=== PATIENT | female | born 1980 | race Caucasian/White ===

== ENCOUNTER 2019-12-02 05:56 | Inpatient (IN) | payer MEDICAID ==
[~2019-12-02] VITALS: Ht 162.6 cm; Wt 82.2 kg
[2019-12-02 06:46] LABS: Basophils # (auto) 0.1 10 ^3/uL (0-0.2); Basophils % (auto) 0.5 % (0.0-2.0); Eosinophils # (auto) 0.3 10 ^3/uL (0-0.8); Eosinophils % (auto) 2.1 % (0.0-7.0); Hematocrit 41.7 % (36.0-46.0); Hemoglobin 14.2 g/dL (12.2-16.2); Lymphocytes # (auto) 1.9 10 ^3/uL (0.4-5.4); Lymphocytes % (auto) 12.4 % (10.0-50.0); Mean Corpuscular Hemoglobin 32.3 pg (28.0-32.0); Mean Corpuscular Hgb Conc. 34.1 g/dL (32.0-36.0); Mean Corpuscular Volume 94.6 fL (80.0-100.0); Monocytes # (auto) 0.8 10 ^3/uL (0-1.3); Monocytes % (auto) 5.1 % (0.0-12.0); Neutrophils # (auto) 11.9 10 ^3/uL (1.6-8.6); Neutrophils % (auto) 79.9 % (37.0-80.0); Nucleated Red Blood Cells % 0.1 %; Platelet Count (auto) 239 10^3/uL (140-450); Red Blood Cells 4.41 10^6/uL (4.0-5.20); White Blood Cell 14.9 10^3/uL (4.4-10.8)
[2019-12-02 07:04] LABS: Albumin 3.4 g/dL (3.4-5.0); BUN/Creatinine Ratio 16.7; Calcium 9.1 mg/dL (8.5-10.1); Potassium 3.4 mmol/L (3.5-5.1)
[2019-12-02 07:07] LABS: Bilirubin, Total 0.5 mg/dL (0.2-1.0); Total Protein 6.8 g/dL (6.4-8.2)
[2019-12-02 07:09] LABS: Urine Bacteria FEW /hpf (None Seen); Urine Blood TRACE /uL (Negative); Urine Specific Gravity 1.021 (1.001-1.035); Urine WBC 101 /hpf (0 - 5)
[2019-12-02] MEDS ORDERED: PROMETHAZINE HCL 25 MG/ML 1ML IV ONE (11:00)
[2019-12-02] MEDS ORDERED: SODIUM CHLORIDE 0.9% 1,000 ML IVB ONE (11:00)
[2019-12-02] MEDS ORDERED: cefTRIAXone 1GM/50ML D5W 50 ML IV ONE (11:00)
[2019-12-02] MEDS ORDERED: KETOROLAC TROMETH 30 MG/ML 1ML VIAL IV ONE (11:00)
[2019-12-02] MEDS ORDERED: HCTZ25T PO (13:01)
[2019-12-02] MEDS ORDERED: LISI-646 PO (13:01)
[2019-12-02] MEDS ORDERED: MORPHINE SULF INJ 2 MG/ML SYRINGE 1ML IV PRN ×2 (13:15)
[2019-12-02] MEDS ORDERED: NITROGLYCERIN 0.4 MG SL TAB SL PRN (13:15)
[2019-12-02] MEDS: SODIUM CHLORIDE 0.9% 1,000 ML IV SCH ×2 (13:26→19:01)
[2019-12-02] MEDS: metroNIDAZOLE 500MG/100ML 100 ML IV SCH ×2 (14:13→22:29)
[2019-12-02] MEDS ORDERED: OMEG100078 PO (14:15)
[2019-12-02] MEDS ORDERED: GLUC1CAP12 PO (14:15)
[2019-12-02] MEDS ORDERED: CHOL20007 PO (14:15)
[2019-12-02] MEDS ORDERED: levoFLOXacin 500MG 100 ML IV SCH (15:00)
--- NOTE | 2019-12-02 18:56 | NUR ---
Telemetry admit from ER ALFREDO LUJAN admitted to Telemetry unit after SBAR received. Patient oriented to TATY OMALLEY, RN primary RN, unit, room, bed, and unit policies regarding patient care and visiting hours. Patient now on continuous telemetry monitoring, tele box # 50 and telemetry reading on arrival to unit is ,weighed by bed scale and encouraged to call if they need something. All questions and concerns addressed, patient verbalized understanding.
--- NOTE | 2019-12-02 20:00 | NUR ---
NO C/O PAIN OR DISTRESS. AWAITING COVID SWAB FROM LAB.
[2019-12-02 22:00] VITALS: BP 134/79
[2019-12-02] MEDS: HYDROcodone-ACET 5/325MG TAB PO PRN (22:28)
[2019-12-03 05:00] VITALS: BP 136/86
[2019-12-03] MEDS: metroNIDAZOLE 500MG/100ML 100 ML IV SCH ×3 (05:53→22:03)
--- NOTE | 2019-12-03 07:50 | NUR ---
Opening Shift Note Assumed care of patient, awake and alert x 4. respirations are even and non labored. No S/S of distress or SOB. Bed is in the lowest and locked position with side rails up x 2 and call light within reach. Instructed on POC and to call for assist PRN, will continue to monitor for changes Q1hr and PRN.
[2019-12-03] MEDS: HYDROcodone-ACET 5/325MG TAB PO PRN (08:46)
[2019-12-03 09:00] VITALS: BP 124/70
[2019-12-03] MEDS: SODIUM CHLORIDE 0.9% 1,000 ML IV SCH ×2 (09:15→22:03)
[2019-12-03] MEDS ORDERED: LISINOPRIL 20 MG TAB PO SCH (10:00)
[2019-12-03] MEDS ORDERED: HCTZ 25 MG TAB PO SCH (10:00)
[2019-12-03 10:53] LABS: Basophils # (auto) 0 10 ^3/uL (0-0.2); Basophils % (auto) 0.4 % (0.0-2.0); Eosinophils # (auto) 0.3 10 ^3/uL (0-0.8); Eosinophils % (auto) 3.8 % (0.0-7.0); Hematocrit 37.5 % (36.0-46.0); Hemoglobin 12.9 g/dL (12.2-16.2); Lymphocytes # (auto) 1.6 10 ^3/uL (0.4-5.4); Lymphocytes % (auto) 17.1 % (10.0-50.0); Mean Corpuscular Hemoglobin 32.6 pg (28.0-32.0); Mean Corpuscular Hgb Conc. 34.5 g/dL (32.0-36.0); Mean Corpuscular Volume 94.7 fL (80.0-100.0); Monocytes # (auto) 0.4 10 ^3/uL (0-1.3); Monocytes % (auto) 4.7 % (0.0-12.0); Neutrophils # (auto) 6.7 10 ^3/uL (1.6-8.6); Platelet Count (auto) 188 10^3/uL (140-450); Red Blood Cells 3.95 10^6/uL (4.0-5.20); Red Cell Distribution Width 12.7 % (11.8-14.3); White Blood Cell 9.1 10^3/uL (4.4-10.8)
[2019-12-03 11:08] LABS: INR 1.16 (0.9-1.15); Partial Thromboplastin Time 32.1 sec (23.0-31.2)
[2019-12-03 11:10] LABS: Calcium 7.4 mg/dL (8.5-10.1); Magnesium 1.9 mg/dL (1.6-2.6); Potassium 3.4 mmol/L (3.5-5.1)
--- NOTE | 2019-12-03 12:42 | NUR ---
Nutrition Consult Will monitor pt diet advancement and tolerance of diet Est energy needs 7989-5513 kcal (20-22 kcal/kg BW 81.5kg) Est protein needs 55-71g (1-1.3g/kg BW 55kg) Will reassess prn. Addendum: 12/03/19 at [address] Amended: Links added.
[2019-12-03 13:00] VITALS: BP 118/74
[2019-12-03] MEDS: MORPHINE SULF INJ 2 MG/ML SYRINGE 1ML IV PRN ×2 (13:28→18:20)
[2019-12-03] MEDS: ONDANSETRON HCL 4 MG/2 ML VIAL IV PRN ×2 (13:37→18:19)
[2019-12-03] MEDS ORDERED: cefTRIAXone 1GM/50ML D5W 50 ML IV ONE (14:45)
[2019-12-03 16:42] VITALS: BP 123/67
--- NOTE | 2019-12-03 19:21 | NUR ---
Shift closing Patient resting in bed, no distress noted. Will endorse care to nightshift RN.
[2019-12-03] MEDS ORDERED: MORPHINE SULF INJ 2 MG/ML SYRINGE 1ML IV PRN (20:15)
[2019-12-03 22:00] VITALS: BP 139/83
[2019-12-04 05:00] VITALS: BP 133/85
[2019-12-04] MEDS: metroNIDAZOLE 500MG/100ML 100 ML IV SCH (06:01)
[2019-12-04 06:21] LABS: Basophils # (auto) 0 10 ^3/uL (0-0.2); Basophils % (auto) 0.5 % (0.0-2.0); Eosinophils # (auto) 0.3 10 ^3/uL (0-0.8); Eosinophils % (auto) 2.8 % (0.0-7.0); Hematocrit 37.7 % (36.0-46.0); Hemoglobin 13.4 g/dL (12.2-16.2); Lymphocytes # (auto) 1.9 10 ^3/uL (0.4-5.4); Lymphocytes % (auto) 17.9 % (10.0-50.0); Mean Corpuscular Hemoglobin 33.6 pg (28.0-32.0); Mean Corpuscular Hgb Conc. 35.5 g/dL (32.0-36.0); Mean Corpuscular Volume 94.8 fL (80.0-100.0); Monocytes # (auto) 0.5 10 ^3/uL (0-1.3); Monocytes % (auto) 4.3 % (0.0-12.0); Neutrophils # (auto) 7.9 10 ^3/uL (1.6-8.6); Neutrophils % (auto) 74.5 % (37.0-80.0); Platelet Count (auto) 192 10^3/uL (140-450); Red Blood Cells 3.98 10^6/uL (4.0-5.20); Red Cell Distribution Width 12.9 % (11.8-14.3); White Blood Cell 10.6 10^3/uL (4.4-10.8)
[2019-12-04 06:29] LABS: INR 1.18 (0.9-1.15); Partial Thromboplastin Time 31.5 sec (23.0-31.2)
[2019-12-04 06:38] LABS: BUN/Creatinine Ratio 13.7; Calcium 7.8 mg/dL (8.5-10.1); Potassium 3.3 mmol/L (3.5-5.1)
--- NOTE | 2019-12-04 07:30 | NUR ---
Opening Shift Note Assuming care of patient at this time. Patient is awake and alert. Patient complains of 5/10 pain at this time, but does not wish to be medicated prior to surgery. Patient does not want the pain medication to interfere with anesthesia. Educated patient. Will hold off on medicating for pain if procedure proceeds soon. Instructed patient on the plan of care for today and to call for assistance as needed. Call light within reach. Will continue to round hourly.
[2019-12-04] MEDS ORDERED: BUPIVACAINE HCL 50 ML ONE (08:24)
[2019-12-04] MEDS ORDERED: LIDOCAINE 1% HCL (LOCAL ANESTH.) INJ 20ML MDV ONE (08:24)
--- NOTE | 2019-12-04 08:45 | NUR ---
Patient off Unit Patient taken off unit at this time for procedure.
[2019-12-04] MEDS: SODIUM CHLORIDE 0.9% 1,000 ML IV SCH ×2 (08:49→14:31)
--- NOTE | 2019-12-04 08:50 | NUR ---
Medication Held Daily 1000 medications held at this time. Patient is off unit. Will reassess need for medications once patient is back on unit.
[2019-12-04] MEDS ORDERED: cefTRIAXone 1GM/50ML D5W 50 ML IV SCH (09:00)
[2019-12-04] MEDS ORDERED: LIDOCAINE 1% (LOCAL ANESTH.) PF 5ml SDV ONE (09:08)
[2019-12-04] MEDS ORDERED: SUCCINYLCHOLINE CHLORIDE 20 MG/ML 10ML VIAL IV ONE (09:08)
[2019-12-04 09:15] VITALS: BP 128/81
[2019-12-04] MEDS ORDERED: ONDANSETRON HCL 4 MG/2 ML VIAL IV PRN (09:15)
[2019-12-04] MEDS ORDERED: NALOXONE HCL 0.4 MG/ML VIAL IV PRN (09:15)
[2019-12-04] MEDS ORDERED: HYDROmorphone HCL 2 MG/ML VL IV PRN ×2 (09:15)
[2019-12-04] MEDS ORDERED: MIDAZOLAM HCL 1MG/1ML-2 ML VIAL ONE (09:29)
[2019-12-04] MEDS ORDERED: ROCURONIUM 10MG/ML 10ML VIAL IV ONE (09:30)
[2019-12-04] MEDS ORDERED: PROPOFOL 10 MG/ML 20 ML IV ONE (09:31)
[2019-12-04] MEDS ORDERED: METOCLOPRAMIDE HCL 5MG/ml INJ 2ml VIAL ONE (09:31)
[2019-12-04] MEDS ORDERED: HEPARIN SODIUM (PORCINE) 5000 UNITS/ML 1ML VIAL ONE (09:35)
[2019-12-04] MEDS ORDERED: fentaNYL CITRATE 100 MCG/2 ML VL ONE (09:50)
[2019-12-04] MEDS ORDERED: LISINOPRIL 20 MG TAB PO SCH (10:00)
[2019-12-04] MEDS ORDERED: HCTZ 25 MG TAB PO SCH (10:00)
[2019-12-04] MEDS ORDERED: PANTOPRAZOLE 40 MG/10 ML VIAL INJ IV SCH (10:00)
[2019-12-04] MEDS ORDERED: ENOXAPARIN SOD 40 MG/0.4 ML SYRINGE SC SCH (10:00)
[2019-12-04] MEDS ORDERED: GLYCOPYRROLATE 0.2 MG/ML 1ML VIAL ONE (11:07)
[2019-12-04] MEDS ORDERED: NEOSTIGMINE 1 MG/ML INJ (10mg/10ML VIAL) ONE (11:07)
[2019-12-04] MEDS ORDERED: ONDANSETRON HCL 4 MG/2 ML VIAL IV ONE (11:20)
[2019-12-04] MEDS ORDERED: HYDROmorphone HCL 2 MG/ML VL IV ONE (11:20)
[2019-12-04] MEDS ORDERED: OXYCODONE W/ ACETAMINOPHEN 5/325MG TABLET PO PRN ×2 (11:30)
--- NOTE | 2019-12-04 12:15 | NUR ---
Patient back on unit Patient back on unit at this time. Incisions to abdomen are clean, dry, and intact. No distress noted.
[2019-12-04 13:00] VITALS: BP 147/88
--- NOTE | 2019-12-04 13:39 | NUR ---
Endorse care Care endorsed to JUSTIN Garrison, at this time.
--- NOTE | 2019-12-04 14:00 | NUR ---
Received pt resting in bed, call light within reach, abdominal incision x5 with bedatine stains, abdominal binder on, no pain reported at this time, will continue to monitor pt.
[2019-12-04] MEDS: MORPHINE SULF INJ 2 MG/ML SYRINGE 1ML IV PRN ×2 (14:44→20:19)
[2019-12-04] MEDS ORDERED: HYDR-4833 PO (15:22)
--- NOTE | 2019-12-04 16:00 | NUR ---
Incentive spirometer given to pt, pt educated on the use, importance, and frequency, return demonstration done, pt reached 500ml,
[2019-12-04 17:00] VITALS: BP 140/86
--- NOTE | 2019-12-04 19:30 | NUR ---
Opening Shift Note Assumed care of patient, awake and alert. No S/S of distress/SOB. Pain reported. Pain management options discussed with patient. Instructed on POC and to call for assist PRN, will continue to monitor for changes Q1hr and PRN.
[2019-12-04 20:00] VITALS: BP 148/94
--- NOTE | 2019-12-04 20:00 | NUR ---
Spoke with Dr. Aicha Teague. orders received to stat page Dr. Farrell and obtain clearance for discharge.
--- NOTE | 2019-12-04 20:18 | NUR ---
Dr. Farrell cleared patient to go home tonight.
--- NOTE | 2019-12-04 20:30 | NUR ---
Dr. Teague to inform him that the patient says she doesn't have a ride home and wants to stay for the night.
--- NOTE | 2019-12-04 20:45 | NUR ---
Dr. Teague returned page. the patient must go today and we will arrange transportation for the patient if she needs it.
--- NOTE | 2019-12-04 21:55 | NUR ---
Discharge instructions given as ordered. Encourage to follow up with PMD as instructed. All questions and concerns addressed. Patient verbalized understanding. IV removed with catheter intact, pressure dressing applied. Telemetry unit returned to ICU. Patient taken to vehicle via wheelchair with all personal belongings, accompanied by staff and family member. No distress noted at time of departure.
== END 2019-12-04 21:55 | disposition home health service (06) | DRG 263 ==
LOC: ER 05:56 → TELE 05:57 → TELE-WESTW 18:41
PROVIDERS: ADMIT Internal Medicine; ATTEND Internal Medicine
PROC: 0DNU4ZZ Release Omentum, Percutaneous Endoscopic Approach (ICD-10-PCS; 2019-12-04)
PROC: 0FT44ZZ Resection of Gallbladder, Percutaneous Endoscopic Approach (ICD-10-PCS; principal; 2019-12-04 09:39)
DX: K80.00 Calculus of gallbladder with acute cholecystitis without obstruction (principal); E44.1 Mild protein-calorie malnutrition; E87.6 Hypokalemia; F12.929 Cannabis use, unspecified with intoxication, unspecified; I10 Essential (primary) hypertension; N39.0 Urinary tract infection, site not specified; E66.9 Obesity, unspecified; K66.0 Peritoneal adhesions (postprocedural) (postinfection); Z20.828 Contact with and (suspected) exposure to other viral communicable diseases; Z88.1 Allergy status to other antibiotic agents; Z90.49 Acquired absence of other specified parts of digestive tract; Z68.30 Body mass index [BMI] 30.0-30.9, adult; Z80.3 Family history of malignant neoplasm of breast; Z82.49 Family history of ischemic heart disease and other diseases of the circulatory system; Z83.3 Family history of diabetes mellitus; Z79.899 Other long term (current) drug therapy
CPT/HCPCS: 36415; 74181; 76705; 80048; 80053; 81001; 81025; 83690; 83735; 85025; 85610; 85730; 86850; 86900; 86901; 96365; 96367; C9113; G0378; J0330; J0696; J1885; J1956; J2001; J2250; J2405; J2704; J3490; J7060